=== PATIENT | female | born 1985 | race Hispanic/Latino ===

== ENCOUNTER 2016-06-02 14:47 | Emergency (ER) | payer OTHER ==
[~2016-06-02 14:47] MED LIST: AMOXICILLIN500 MG PO; BACTRIM DS 8001 TAB PO; HYDROXYZINE50 MG PO; IBU800 MG PO; MEDROL DOSEPAK1 PAC PO; MOTRIN800 MG PO; PERCOCET 325 MG1 TA2 PO; PREDNISONE 10MG10 M1 PO; PROVENTIL0.09 MG/A1 INH; ZITHROMAX Z-PA250 M1 PO
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
[2016-06-02 15:54] LABS: ABSOLUTE BASOPHIL COUNT 0.1 /CUMM (0.0-0.2); ABSOLUTE EOSINOPHIL COUNT 0.2 /CUMM (0.0-0.7); ABSOLUTE GRANULOCYTE CT 7.8 /CUMM (1.4-6.5); BASOPHIL % 0.5 % (0.0-2.0); EOSINOPHIL % 1.7 % (0-5); GRANULOCYTE % 70.8 % (42.2-75.2); HEMATOCRIT 42.1 % (37-47); MEAN CORPUSCULAR HGB 30.5 PG (27.0-31.0); MEAN CORPUSCULAR HGB CONC 33.7 G/DL (33.0-37.0); MEAN CORPUSCULAR VOLUME 90.4 FL (81.0-99.0); MEAN PLATELET VOLUME 8.3 FL (7.4-10.4); PLATELET COUNT 278 /CUMM (130-400); RBC DISTRIBUTION WIDTH 12.3 % (11.5-14.5); RED BLOOD CELL CT 4.66 /CUMM (4.20-5.40); WHITE BLOOD CELL COUNT 11.1 /CUMM (4.8-10.8)
[2016-06-02 18:43] VITALS: BP 126/65
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
--- NOTE | 2016-06-02 18:47 | ED PSY CRISIS COLLATERAL NOTE ---
Collateral Note Collateral Note Family/Inform/Nicole Contacts: Spoke to patients friend Rafa ([phone]) who was hear earlier in the hospital with patient then left for a little. He reported that he is a friend and can come back to pick her up. He felt patient could return home this evening and offerred no complaints. He called back with patients brother, Maicol, present. I spoke to Maicol and he confirmed that patients children are home with him and he attested to safety of kids in the home and in the presence of patient.
--- NOTE | 2016-06-03 11:15 | IOP INCIDENTAL NOTE ---
IOP Incidental Note Details: Pt was seen in Crisis yesterday and told to call [facility] for intake appt. Pt did call this morning. [facility] are both full at this time and IOP director Molly Valles suggested having pt call [facility] [phone] instead to see if she could go there for IOP. Called pt at [phone] and discussed; she agreed to plan and will call [facility] if has any problems securing appt. Frieda Nieves from [facility], [place] Office, also called to see if pt has appt. She was informed of what was discussed with pt; she will call Molly at [facility] if pt cannot secure appt at [facility].
== END 2016-06-02 19:18 ==
LOC: ERH 14:47
PROVIDERS: Emergency Medicine
DX: F16.121 Hallucinogen abuse with intoxication with delirium (principal); F12.129 Cannabis abuse with intoxication, unspecified
CPT/HCPCS: 80307; 96372; G0463; G0480

== ENCOUNTER 2017-08-26 10:54 | Emergency (ER) | payer OTHER ==
[~2017-08-26] VITALS: Ht 170.2 cm; Wt 90.7 kg
[~2017-08-26 10:54] MED LIST changes: +ANALGESIC BALM28 GM TOP; +CYCLOBENZAPRINE10 M1 PO; +DIVALPROEX SOD500 M2 PO; +DOCUSATE SODIU100 M3 PO; +GABAPENTIN100 M2 PO; +GABAPENTIN300 M2 PO; +KETOROLAC TROME10 M1 PO; +MELATONIN5 M7 PO; +PERCOCET 5-3251 EACH PO; +REMERON15 M2 PO; +SEROQUEL XR150 M1 PO; +ZIPRASIDONE HCL40 M1 PO
[2017-08-26 11:29] VITALS: BP 111/79
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
[2017-08-26] MEDS ORDERED: MEDROL4 M2 PO (12:15)
== END 2017-08-26 12:17 ==
LOC: ERH 10:54
DX: L30.9 Dermatitis, unspecified (principal)